=== PATIENT | female | born 1960 | race African-American/Black ===

== ENCOUNTER 2016-07-02 09:54 | Inpatient (IN) | payer MEDICAID ==
[~2016-07-02] VITALS: Ht 170.2 cm; Wt 52.4 kg
[~2016-07-02 09:54] MED LIST: FLUO-191 PO; TRAZ-147 PO
[2016-07-02 10:37] LABS: BASOPHILS % (AUTO) 1.1 % (0.0-2.0); EOSINOPHILS % (AUTO) 1.4 % (1.0-6.0); HEMATOCRIT 35.1 % (36-46); HEMOGLOBIN 10.9 g/dL (12.0-16.0); LYMPHOCYTES # (AUTO) 1.4 K/uL (1.0-4.8); LYMPHOCYTES % (AUTO) 32.3 % (22.0-44.0); MEAN CORPUSCULAR HEMOGLOBIN 23.8 pg (26.0-34.0); MEAN CORPUSCULAR HGB CONC 31.2 G/dL (31.0-37.0); MEAN CORPUSCULAR VOLUME 76 fL (80-100); MONOCYTES # (AUTO) 0.3 K/uL (0.1-1.0); MONOCYTES % (AUTO) 7.5 % (2.0-9.0); NEUTROPHILS # (AUTO) 2.5 K/uL (1.8-7.7); NEUTROPHILS % (AUTO) 57.7 % (40.0-70.0); PLATELET COUNT (AUTO) 292 K/uL (150-450); RED CELL DISTRIBUTION WIDTH 15.3 % (11.5-14.5); WHITE BLOOD COUNT (AUTO) 4.3 K/uL (4.5-11.0)
[2016-07-02 10:48] LABS: ANION GAP 4 mmol/L (8-16); CALCIUM, TOTAL 8.3 mg/dL (8.8-10.5); CARBON DIOXIDE 32 mmol/L (22-29); CHLORIDE 102 mmol/L (98-107); CREATININE 0.69 mg/dL (0.60-1.30); GLOMERULAR FILTR. RATE CALC > 60 mL/min (>60); POTASSIUM 3.4 mmol/L (3.5-5.1); SODIUM SERUM 138 mmol/L (136-145); UREA NITROGEN, BLOOD 12 mg/dL (7-18)
[2016-07-02 10:53] LABS: ALANINE AMINOTRANSFERASE 26 U/L (12-78); ALBUMIN 3.2 g/dL (3.4-5.0); ASPARTATE AMINOTRANSFERASE 22 U/L (15-37); BILIRUBIN,TOTAL 0.1 mg/dL (0.1-1.0); TOTAL PROTEIN, SERUM 7.1 g/dL (6.4-8.2)
[2016-07-02 11:08] LABS: RBC MORPHOLOGY COMMENT ABNORMAL RBC MORPH
[2016-07-02] MEDS ORDERED: LORazepam 2 MG TABLET PO PRN (12:15)
[2016-07-02] MEDS ORDERED: ZOLPIDEM TARTRATE 10 MG TABLET PO PRN (12:15)
[2016-07-02] MEDS ORDERED: HALOPERIDOL 5 MG TABLET PO PRN (12:15)
[2016-07-02 13:40] VITALS: BP 146/81
[2016-07-02] MEDS ORDERED: INFLUENZA VIRUS VACCINE QVS 2016-17 (3YR+)/PF 60 MCG/0.5 ML SYRINGE IM ONE (14:00)
[2016-07-02] MEDS ORDERED: PNEUMOCOCCAL VACCINE POLYVALENT 0.5 ML VIAL [PPSV23] IM ONE (14:00)
[2016-07-02] MEDS: DIVALPROEX SODIUM 500 MG DR TABLET PO SCH ×2 (16:02→16:06)
[2016-07-02] MEDS: RisperiDONE 2 MG TABLET PO SCH ×2 (16:02→16:07)
[2016-07-02 16:20] VITALS: BP 113/76
[2016-07-03 02:54] VITALS: BP 127/76
[2016-07-03 08:24] VITALS: BP 123/67
[2016-07-03] MEDS: DIVALPROEX SODIUM 500 MG DR TABLET PO SCH ×2 (09:00→16:17)
[2016-07-03] MEDS ORDERED: RisperiDONE 0.5 MG TABLET PO SCH ×2 (09:00)
[2016-07-03] MEDS: RisperiDONE 3 MG TABLET PO SCH ×3 (09:22→17:53)
[2016-07-03 16:00] VITALS: BP 135/72
[2016-07-03] MEDS ORDERED: POTASSIUM CHLORIDE 20 MEQ ER TABLET PO ONE (16:00)
[2016-07-04 06:36] VITALS: BP 117/65
[2016-07-04 08:01] VITALS: BP 118/82
[2016-07-04] MEDS: RisperiDONE 3 MG TABLET PO SCH ×2 (09:40→16:07)
[2016-07-04 16:28] VITALS: BP 122/69
[2016-07-05 00:01] VITALS: BP 109/69
[2016-07-05 08:01] VITALS: BP 131/74
[2016-07-05] MEDS: RisperiDONE 3 MG TABLET PO SCH ×2 (08:23→16:38)
[2016-07-05 08:38] LABS: BASOPHILS % (AUTO) 0.1 % (0.0-2.0); EOSINOPHILS # (AUTO) 0.07 K/uL (0.00-0.70); HEMATOCRIT 42.5 % (36-46); HEMOGLOBIN 13.2 g/dL (12.0-16.0); LYMPHOCYTES # (AUTO) 1.6 K/uL (1.0-4.8); LYMPHOCYTES % (AUTO) 38.5 % (22.0-44.0); MEAN CORPUSCULAR HEMOGLOBIN 23.8 pg (26.0-34.0); MEAN CORPUSCULAR HGB CONC 31.1 G/dL (31.0-37.0); MEAN CORPUSCULAR VOLUME 77 fL (80-100); MONOCYTES # (AUTO) 0.2 K/uL (0.1-1.0); MONOCYTES % (AUTO) 4.7 % (2.0-9.0); NEUTROPHILS # (AUTO) 2.3 K/uL (1.8-7.7); PLATELET COUNT (AUTO) 329 K/uL (150-450); RED BLOOD CELL COUNT(AUTO) 5.54 MIL/uL (4.00-5.20); RED CELL DISTRIBUTION WIDTH 15.7 % (11.5-14.5); WHITE BLOOD COUNT (AUTO) 4.1 K/uL (4.5-11.0)
[2016-07-05 09:37] LABS: ALANINE AMINOTRANSFERASE 22 U/L (12-78); ALBUMIN 3.6 g/dL (3.4-5.0); ANION GAP 8 mmol/L (8-16); ASPARTATE AMINOTRANSFERASE 15 U/L (15-37); BILIRUBIN,TOTAL 0.3 mg/dL (0.1-1.0); CALCIUM, TOTAL 8.7 mg/dL (8.8-10.5); CARBON DIOXIDE 31 mmol/L (22-29); CHLORIDE 102 mmol/L (98-107); CHOL/HDL RATIO 2.6 (3.9-5.7); CREATININE 0.84 mg/dL (0.60-1.30); GLOMERULAR FILTR. RATE CALC > 60 mL/min (>60); POTASSIUM 3.5 mmol/L (3.5-5.1); SODIUM SERUM 141 mmol/L (136-145); THYROID STIMULATING HORMONE 1.93 uIU/mL (0.36-3.74); UREA NITROGEN, BLOOD 13 mg/dL (7-18)
[2016-07-05 09:49] LABS: VALPROIC ACID < 3 mcg/mL (50-100)
[2016-07-05 16:00] VITALS: BP 126/78
[2016-07-06 04:58] VITALS: BP 112/69
[2016-07-06] MEDS: RisperiDONE 3 MG TABLET PO SCH ×2 (08:31→16:36)
[2016-07-06 08:32] VITALS: BP 136/75
[2016-07-06 14:28] VITALS: BP 130/78
[2016-07-06] MEDS ORDERED: ACETAMINOPHEN 325 MG TABLET PO PRN (14:30)
[2016-07-06] MEDS ORDERED: IBUPROFEN 600 MG TABLET PO PRN (14:30)
[2016-07-06 16:13] VITALS: BP 140/84
[2016-07-07 00:52] VITALS: BP 135/79
[2016-07-07 05:16] LABS: HEPATITIS Bs ANTIGEN SCREEN P Negative (Negative); HEPATITIS C AB SCREEN <0.1 s/co ratio (0.0-0.9)
[2016-07-07] MEDS: RisperiDONE 3 MG TABLET PO SCH (08:44)
[2016-07-07 08:58] VITALS: BP 114/79
[2016-07-07] MEDS ORDERED: RISP3TAB44 PO (09:22)
== END 2016-07-07 11:55 | disposition home or self-care (01) | DRG 750 ==
LOC: EMS 09:55 → EEVIPCON 09:55 → B2S 12:28
PROVIDERS: ADMIT Psychiatry & Neurology Psychiatry; ATTEND Psychiatry & Neurology Psychiatry
DX: F25.0 Schizoaffective disorder, bipolar type (principal); Z91.14 Patient's other noncompliance with medication regimen; E87.6 Hypokalemia; D64.9 Anemia, unspecified; F41.9 Anxiety disorder, unspecified; R73.03 Prediabetes; F17.200 Nicotine dependence, unspecified, uncomplicated; Z59.0 Homelessness; Z28.21 Immunization not carried out because of patient refusal
CPT/HCPCS: 80074; 82306; 82607; 82746; 83036; 83735; 84439; 84443; 99285; G0480